=== PATIENT | female | born 1975 ===

== ENCOUNTER 2017-04-05 03:30 | Emergency (ER) | payer OTHER, SELFPAY ==
[2017-04-05 03:31] VITALS: BMI 37.1
[2017-04-05 03:54] VITALS: BP 128/65; PULSE 75; RESP 16; TEMP 98.2; O2SAT 100
--- NOTE | 2017-04-05 04:09 | ED PDOC ---
Upper Extremity Pain/Injury Time Seen by Provider: 04/05/17 04:07 Chief Complaint (Nursing): Upper Extremity Problem/Injury Chief Complaint (Provider): left shoulder History Per: Patient (41 y/o female here for evaluation of fall from 4 days ago. STates she misstepped and fell to left side of body. No LOC. Notes pain in left shoulder. Notes increasing pain at work today left side chest pain/left shoulder pain/left wrist pain. Took tylenol prior for pain.) Past Medical History Reviewed: Historical Data, Nursing Documentation, Vital Signs Vital Signs: Last Vital Signs Temp 98.2 F 04/05/17 03:39 Pulse 75 04/05/17 03:39 Resp 16 04/05/17 03:39 BP 128/65 04/05/17 03:39 Pulse Ox 100 04/05/17 03:39 - Medical History PMH: Anemia, Diabetes, HTN, Rheumatoid Arthritis Denies: Chronic Kidney Disease - Surgical History Surgical History: Appendectomy - Family History Family History: States: Unknown Family Hx - Home Medications Home Medications: Ambulatory Orders Medication Instructions Recorded Ibuprofen [Motrin] 600 mg PO Q6 #20 tab 07/29/15 Tramadol HCl [Ultram] 50 mg PO BID PRN #30 tablet 03/23/16 Naproxen 1 tab PO Q12 PRN #14 tab 04/05/17 - Allergies Allergies/Adverse Reactions: Allergies Allergy/AdvReac Type Severity Reaction Status Date / Time No Known Allergies Allergy Verified 07/29/15 10:36 Review of Systems ROS Statement: Except As Marked, All Systems Reviewed And Found Negative Physical Exam - Reviewed Nursing Documentation Reviewed: Yes Vital Signs Reviewed: Yes - Physical Exam Appears: Positive for: Well, Non-toxic, No Acute Distress Head Exam: Positive for: ATRAUMATIC, NORMAL INSPECTION, NORMOCEPHALIC Skin: Positive for: Normal Color, Warm, DRY Eye Exam: Positive for: EOMI, Normal appearance, PERRL ENT: Positive for: Normal ENT Inspection Neck: Positive for: Normal, Painless ROM Cardiovascular/Chest: Positive for: Regular Rate, Rhythm Respiratory: Positive for: CNT, Normal Breath Sounds Gastrointestinal/Abdominal: Positive for: Normal Exam, Bowel Sounds, Soft Back: Positive for: Normal Inspection Extremity: Positive for: Normal ROM, Tenderness (tenderness by AC joint; limited ROM due to pain; nontender elbow; left wrist tenderness radial aspect.) Neurologic/Psych: Positive for: Alert, Oriented - ECG O2 Sat by Pulse Oximetry: 100 - Progress ED Course And Treament: Motrin 600 mg x 1 dose SHOULDER XRY: NAD CXR: NAD WRIST XRY LEFT: NAD Disposition - Clinical Impression Clinical Impression: Wrist contusion, Shoulder sprain - Patient ED Disposition Is Patient to be Admitted: No - Disposition Referrals: Hu Evans MD [Primary Care Provider] - Shereen Reece MD [Staff Provider] - Disposition: Routine/Home Disposition Time: 05:33 Condition: FAIR Prescriptions: Naproxen 1 tab PO Q12 PRN #14 tab PRN Reason: Pain, Moderate (4-7) Instructions: Shoulder Sprain (ED), Wrist Injury (ED) Forms: [employer] (Senegalese), [facility] ED School/Work Excuse Print Language: SYRIAN
--- NOTE | 2017-04-05 10:17 | RAD ---
HISTORY: Chest pain COMPARISON: No prior TECHNIQUE: Chest PA and lateral FINDINGS: LUNGS: Suspect minimal atelectasis both lung bases. . PLEURA: No significant pleural effusion identified. No pneumothorax apparent. CARDIOVASCULAR: Normal. OSSEOUS STRUCTURES: No significant abnormalities. VISUALIZED UPPER ABDOMEN: Normal. OTHER FINDINGS: None. IMPRESSION: Suspect minimal atelectasis both lung bases.
--- NOTE | 2017-04-05 10:20 | RAD ---
PROCEDURE: Radiographs of the Left Shoulder HISTORY: shoulder injury COMPARISON: No prior. FINDINGS: BONES: No evidence of acute displaced fracture nor dislocation. The osseous structures intact. JOINTS: Normal. Glenohumeral and acromioclavicular joints preserved. No significant osteoarthritis. SOFT TISSUES: Normal. OTHER FINDINGS: None. IMPRESSION: Normal radiographs of the left shoulder.
--- NOTE | 2017-04-05 11:04 | RAD ---
PROCEDURE: Left Wrist Radiographs. HISTORY: wrist injury COMPARISON: None. FINDINGS: BONES: No acute fracture. JOINTS: Unremarkable. SOFT TISSUES: Normal. OTHER FINDINGS: None. IMPRESSION: No demonstrated fracture or dislocation.
== END 2017-04-05 05:57 | disposition home or self-care (01) ==
LOC: H.ER 03:30
DX: S60.212A Contusion of left wrist, initial encounter (principal); S43.402A Unspecified sprain of left shoulder joint, initial encounter; W19.XXXA Unspecified fall, initial encounter; Y92.89 Other specified places as the place of occurrence of the external cause; E11.9 Type 2 diabetes mellitus without complications; I10 Essential (primary) hypertension; M06.9 Rheumatoid arthritis, unspecified

== ENCOUNTER 2017-05-05 16:20 | Emergency (ER) | payer OTHER ==
[2017-05-05 16:20] VITALS: BMI 37.1
[2017-05-05 16:29] VITALS: PULSE 70; RESP 18; TEMP 97.9; O2SAT 99
[2017-05-05] MEDS ORDERED: DiphenhydrAMINE 50 mg/ml Inj IVP STA (17:05)
[2017-05-05] MEDS ORDERED: Sodium Chloride 0.9% 1,000 ML IV SCH (17:15)
[2017-05-05 17:44] LABS: BASO # 0.1 K/uL (0.0-0.2); BASO % 1.3 % (0.0-2.0); EOS # 0.1 K/uL (0.0-0.7); EOS % 1.2 % (0.0-4.0); HEMOGLOBIN 11.8 g/dL (12.0-16.0); LYMPH # 1.1 K/uL (1.0-4.3); LYMPH % 14.7 % (20.0-40.0); MEAN CELL VOLUME 80.8 fl (81.0-99.0); MEAN CORPUSCULAR HEMOGLOBIN 26.2 pg (27.0-31.0); MEAN CORPUSCULAR HGB CONC 32.4 g/dL (33.0-37.0); MEAN PLATELET VOLUME 9.2 fl (7.2-11.7); MONO # 0.7 K/uL (0.0-0.8); MONO % 8.8 % (0.0-10.0); NEUT # 5.6 K/uL (1.8-7.0); RBC 4.5 Mil/uL (3.80-5.20); RED CELL DISTRIBUTION WIDTH 14.6 % (11.5-14.5); WHITE BLOOD COUNT 7.5 K/uL (4.8-10.8)
[2017-05-05 18:04] LABS: ALB/GLOB RATIO 1.1 (1.0-2.1); ALBUMIN 4.1 g/dL (3.5-5.0); ALT/SGPT 29 U/L (9-52); AST/SGOT 27 U/L (14-36); BLOOD UREA NITROGEN 14 mg/dl (7-17); CALCIUM 8.4 mg/dL (8.4-10.2); GFR AFRICAN-AMERICAN > 60; GFR NON-AFRICAN AMERICAN > 60; LIPASE 88 U/L (23-300)
[2017-05-05] MEDS ORDERED: Potassium Chloride 20 mEq ER Tab PO ONE ×3 (18:12→19:23)
--- NOTE | 2017-05-05 18:55 | ED PDOC ---
HPI: Abdomen Time Seen by Provider: 05/05/17 16:39 Chief Complaint (Nursing): Abdominal Pain Chief Complaint (Provider): Abdominal Pain History Per: Patient Onset/Duration Of Symptoms: Days (x1) Current Symptoms Are (Timing): Still Present Additional Complaint(s): Anel Castellon is a 41 year old female, with a history of diabetes for which she does not take medication, and anemia that presents to the ED with a chief complaint of nausea, vomiting, and diarrhea, associated with diffuse abdominal pain and headache that she has been experiencing for the past day. Otherwise: (-) fever, (-) melena, (-) hematochezia, (-) urinary symptoms. Has history of prior abdominal surgery - appendectomy. Past Medical History Reviewed: Historical Data, Nursing Documentation, Vital Signs Vital Signs: Last Vital Signs Temp 97.9 F 05/05/17 16:24 Pulse 70 05/05/17 16:24 Resp 18 05/05/17 16:24 BP Pulse Ox 99 05/05/17 19:00 - Medical History PMH: Anemia, Diabetes (patient does not take medication for DM), HTN, Rheumatoid Arthritis Denies: Chronic Kidney Disease - Surgical History Surgical History: Appendectomy - Family History Family History: States: Unknown Family Hx - Home Medications Home Medications: Ambulatory Orders Medication Instructions Recorded Ibuprofen [Motrin] 600 mg PO Q6 #20 tab 07/29/15 Tramadol HCl [Ultram] 50 mg PO BID PRN #30 tablet 03/23/16 Naproxen 1 tab PO Q12 PRN #14 tab 04/05/17 Dicyclomine [Bentyl] 20 mg PO QID PRN #20 tab 05/05/17 Famotidine [Pepcid] 40 mg PO DAILY #20 tablet 05/05/17 Ondansetron ODT [Zofran ODT] 4 mg PO DAILY PRN #20 odt 05/05/17 - Allergies Allergies/Adverse Reactions: Allergies Allergy/AdvReac Type Severity Reaction Status Date / Time No Known Allergies Allergy Verified 07/29/15 10:36 Review of Systems ROS Statement: Except As Marked, All Systems Reviewed And Found Negative Constitutional: Negative for: Fever Gastrointestinal: Positive for: Nausea, Vomiting, Abdominal Pain, Diarrhea. Negative for: Hematochezia Genitourinary Female: Negative for: Dysuria, Frequency, Incontinence, Hematuria Neurological: Positive for: Headache Physical Exam - Reviewed Nursing Documentation Reviewed: Yes Vital Signs Reviewed: Yes - Physical Exam Comments: GENERAL APPEARANCE: Patient is awake, alert, oriented x 3, in no acute distress SKIN: Warm, dry; (-) cyanosis. EYES: (-) conjunctival pallor, (-) scleral icterus. ENMT: Mucous membranes dry. NECK: (-) tenderness, (-) stiffness, (-) lymphadenopathy. CHEST AND RESPIRAT ORY: (-) rales, (-) rhonchi, (-) wheezes; breath sounds equal bilaterally. HEART AND CARDIOVASCULAR: (-) irregularity; (-) murmur, (-) gallop. ABDOMEN AND GI: (-) distention. Bowel sounds active; (+) mild diffuse abdominal tenderness to palpation. (-) guarding, (-) rebound, (-) palpable masses, (-) CVA tenderness. EXTREMITIES: (-) deformity, (-) edema, (+) distal pulses. NEURO AND PSYCH: Mental status as above; (-) focal findings. - Laboratory Results Result Diagrams: 05/05/17 17:30 05/05/17 17:30 - ECG O2 Sat by Pulse Oximetry: 99 (RA) Pulse Ox Interpretation: Normal Medical Decision Making Medical Decision Making: Impression: Abdominal Pain assx with nausea/vomiting/diarrhea Plan: * EKG * Urine * Benadryl 25 mg IV * Pepcid 20 mg IV * Toradol 30 mg IV * Reglan 10 mg IV * Potassium Chloride 20 meq PO * NaCl 1000 mLs at 1000 mLs/hr * Reevaluation Ucg (-) EKG : NSR at 70 bpm, no acute ST changes, as read by PA Lab results reviewed : Hgb 11, K 3.2, rest are wnl. Patient given KCL PO. On re-evaluation, patient reports improvement of symptoms, denies any nausea or abdominal pain at this time. On exam, patient remains AAOx3, in no acute distress. On exam, abdomen soft, non-tender, no rebound, no guarding. Diagnostic results d/w the patient in great detail. Diagnosis of gastroenteritis d/w the patient. Based on history, exam and diagnostic results, plan will be for outpatient follow up. Patient instructed to follow-up with pmd in 1-2 days without fail. Advised to take medication as prescribed, BRAT diet, drink plenty of fluids. Return to the emergency room at any time for any new or worsening symptoms. Patient states she fully agrees with and understands discharge instructions. States that she agrees with the plan and disposition. Verbalized and repeated discharge instructions and plan. I have given the patient opportunity to ask any additional questions. Scribe Attestation: Documented by Agatha Slater, acting as a scribe for Josefina Martinez PA-C. Provider Scribe Attestation: All medical record entries made by the Scribe were at my direction and personally dictated by me. I have reviewed the chart and agree that the record accurately reflects my personal performance of the history, physical exam, medical decision making, and the department course for this patient. I have also personally directed, reviewed, and agree with the discharge instructions and disposition. Disposition - Clinical Impression Clinical Impression: Gastroenteritis - Patient ED Disposition Is Patient to be Admitted: No Counseled Patient/Family Regarding: Studies Performed, Diagnosis, Need For Followup, Rx Given - Disposition Referrals: Provider TBD, [Primary Care Provider] - Disposition: Routine/Home Disposition Time: 19:30 Condition: IMPROVED Additional Instructions: Thank you for letting us take care of you today. You were treated for gastroenteritis. The emergency medical care you received today was directed at your acute symptoms. If you were prescribed any medication, please fill it and take as directed. BRAT diet, drink plenty of fluids. It may take several days for your symptoms to resolve. Return to the Emergency Department if your symptoms worsen, do not improve, or if you have any other problems. Please contact your doctor in 2 days for re-evaluation and follow up. Bring any paperwork you were given at discharge with you along with any medications you are taking to your follow up visit. Our treatment cannot replace ongoing medical care by a primary care provider (PCP) outside of the emergency department. Thank you for allowing the [facility] team to be part of your care today. Prescriptions: Dicyclomine [Bentyl] 20 mg PO QID PRN #20 tab PRN Reason: Other Famotidine [Pepcid] 40 mg PO DAILY #20 tablet Ondansetron ODT [Zofran ODT] 4 mg PO DAILY PRN #20 odt PRN Reason: Nausea/Vomiting Instructions: Gastroenteritis (ED) Forms: [employer] (Libyan), [facility] ED School/Work Excuse Print Language: FAROESE
--- NOTE | 2017-05-06 19:12 | CARD ---
APPROVED REPORT EKG Measurement Heart [id number] <Conclusion> Normal sinus rhythm Normal ECG
== END 2017-05-05 20:48 | disposition home or self-care (01) ==
LOC: H.ER 16:20 → SUPCPDRO 16:20 → H.ER 20:48
DX: K52.9 Noninfective gastroenteritis and colitis, unspecified (principal); E11.9 Type 2 diabetes mellitus without complications
CPT/HCPCS: 80053; 81025; 82948; 83690; 85025; 93005; 96374; 96375; 99284; J1200; J1885; J2765; J7040